=== PATIENT | male | born 1950 | race Hispanic/Latino ===

== ENCOUNTER → 2022-01-27 | Outpatient (CLI) | payer OTHER, MEDICARE ==
[~2022-01-27] MED LIST: IOHEXOL 350 MG/ML 100ML INFUS..BTL IV ONE
== END | disposition home or self-care (01) ==
LOC: RAH 09:40
PROVIDERS: ATTEND Internal Medicine Cardiovascular Disease
DX: I71.4 Abdominal aortic aneurysm, without rupture (principal); I10 Essential (primary) hypertension; E78.00 Pure hypercholesterolemia, unspecified
CPT/HCPCS: 71275; Q9967

== ENCOUNTER → 2023-12-28 | Outpatient (CLI) | payer OTHER, MEDICARE | END | disposition home or self-care (01) | LOC: RAH 09:24 | PROVIDERS: ATTEND Internal Medicine Cardiovascular Disease | DX: I71.20 Thoracic aortic aneurysm, without rupture, unspecified (principal) | CPT/HCPCS: 71275; Q9967 ==